=== PATIENT | male | born 1945 | race Caucasian/White ===

== ENCOUNTER → 2018-09-27 | Outpatient (CLI) | payer OTHER ==
[~2018-09-27] MED LIST: 0.9 % SODIUM CHLORIDE 10 ML VIAL ONE; ASPI-630 PO; ATOR40TA59 PO; CARB15DR72 OT; CHOL10003 PO; FAMO40TA4 PO; FURO20TA3 PO; GABA-586 PO; GABA-587 PO; GABA600T7 PO; INSU100C4 SQ; INSU100V13 SQ; IOHEXOL 300 MG/ML 50 ML VIAL. ONE; LIDO30CR TP; LIDOCAINE 1% PF 30 ML VIAL. ONE; LISI40TA PO; METF500T16 PO; METO50TA6 PO; PROP10DR9 OP; SEMA0.25 SQ; TIZA4TAB2 PO; TRAM50TA PO; methylPREDNISolone ACETATE 80 MG/ML VIAL. ONE
[2018-09-27 14:07] VITALS: BP 144/84
== END | disposition home or self-care (01) ==
LOC: SURG 11:31
PROVIDERS: ATTEND Anesthesiology Pain Medicine
DX: M47.26 Other spondylosis with radiculopathy, lumbar region (principal); I10 Essential (primary) hypertension; E11.9 Type 2 diabetes mellitus without complications; I25.10 Atherosclerotic heart disease of native coronary artery without angina pectoris; M19.012 Primary osteoarthritis, left shoulder; Z79.4 Long term (current) use of insulin; Z79.891 Long term (current) use of opiate analgesic; Z79.899 Other long term (current) drug therapy; Z95.5 Presence of coronary angioplasty implant and graft
CPT/HCPCS: 62323; J1040; J2001; Q9967

== ENCOUNTER → 2019-01-15 | Outpatient (CLI) | payer OTHER ==
[~2019-01-15] MED LIST changes: +WARF2.5T71 PO
[2019-01-15 12:22] VITALS: BP 158/70
== END ==
LOC: SURG 10:16
PROVIDERS: ATTEND Anesthesiology Pain Medicine
DX: M54.16 Radiculopathy, lumbar region (principal)
CPT/HCPCS: 36415; 62323; 85610; J1040; J2001; Q9967

== ENCOUNTER 2020-06-02 21:24 | Emergency (ER) | payer MEDICARE, OTHER ==
[~2020-06-02] VITALS: Ht 182.9 cm; Wt 132.9 kg
[~2020-06-02 21:24] MED LIST changes: -0.9 % SODIUM CHLORIDE 10 ML VIAL ONE; -IOHEXOL 300 MG/ML 50 ML VIAL. ONE; -LIDOCAINE 1% PF 30 ML VIAL. ONE; -LISI40TA PO; +LISI40TA6 PO; -methylPREDNISolone ACETATE 80 MG/ML VIAL. ONE
--- NOTE | 2020-06-02 21:46 | RAD ---
EXAM: CT HEAD WITHOUT CONTRAST. HISTORY: Code stroke. Left weakness. TECHNIQUE: Computed tomography of the head was performed without intravenous contrast. *One or more o f the following individualized dose reduction techniques were utilized for this examination: 1. Automated exposure control. 2. Adjustment of the mA and/or kV according to patient size. 3. Use of iterative reconstruction technique. COMPARISON: None. FINDINGS: A fluid density left subdural collection measures 7 mm in thickness. Hypoattenuation within the periventricular white matter indicates mild chronic microangiopathic change. Prominence of the l ateral ventricles and hemispheric sulci indicates mild atrophy. The blood pool is diffusely somewhat hyperdense. The visualized paranasal sinuses appear clear. There are changes of bilateral cataract surgery. The t emporal bones are unremarkable. The calvarium reveals no suspicious lesions. There are atheroscleroti c calcifications of the internal carotid and vertebral arteries. IMPRESSION: 1. A 7 mm left subdural collection may be a chronic fluid density subdural hematoma, versus asymmetri c prominence of the extra-axial space in the setting of atrophy. 2. Mild to moderate atrophy and chronic microangiopathic white matter change. 3. Hyperattenuation of the blood pool. Correlate for polycythemia or hemoconcentration. These findings were called to Dr. Valenzuela by Polo Carrillo on 06/02/2020 at 9:40 PM. FOR INTERNAL CODING PURPOSES RESULT CODE: (C) Electronically signed by: Janett Carrillo MD (06/02/2020 9:44 PM) [facility]
[2020-06-02 21:56] LABS: HEMATOCRIT 50.7 % (39.0-53.0); HEMOGLOBIN 16.9 g/dL (13.0-17.5); RED BLOOD COUNT 5.3 x10^6/uL (4.30-5.70); RED CELL DISTRIBUTION WIDTH 16.5 % (11.5-14.5); WHITE BLOOD COUNT 14.8 x10^3/uL (4.0-11.0)
[2020-06-02 22:06] LABS: CALCIUM 9.5 mg/dL (8.5-10.1); CREATININE 1.5 mg/dL (0.7-1.3); GFR 45.4; POTASSIUM 5.2 mmol/L (3.5-5.1)
[2020-06-02] MEDS ORDERED: dilTIAZem 25 MG/5 ML VIAL IVP ONE (22:15)
--- NOTE | 2020-06-02 22:37 | RAD ---
EXAM: CHEST ONE VIEW. HISTORY: Cerebrovascular accident. COMPARISON: None. FINDINGS: A frontal view of the chest is obtained. The projection is lordotic. There are no confluent infiltrates. There is no pneumothorax or pleural e ffusion. The heart is not enlarged. There are atherosclerotic calcifications of the aorta. IMPRESSION: 1. No confluent infiltrates. Electronically signed by: Janett Carrillo MD (06/02/2020 10:35 PM) [facility]
[2020-06-02] MEDS ORDERED: IV NORMAL SALINE 100ML 100 ML ONE (22:38)
[2020-06-02] MEDS ORDERED: IV NORMAL SALINE 1,000ML 1,000 ML IV ONE (22:45)
[2020-06-02] MEDS ORDERED: dilTIAZem VIAL 125 MG in IV NORMAL SALINE 100ML 100 ML IV PRN (22:45)
[2020-06-02 22:51] LABS: CLARITY,URINE HAZY; COLOR,URINE YELLOW
[2020-06-02 22:52] LABS: BACTERIA,URINE FEW /HPF (0-FEW); BILIRUBIN,URINE NEG (NEG); GLUCOSE,URINE >=1000 mg/dL (NEG); NITRITE,URINE NEG (NEG); RBC,URINE 0 /HPF (0-2); SQUAMOUS EPITHELIAL CELL,UR OCC /LPF; UROBILINOGEN,URINE 0.2 mg/dL (0.2 mg/dL); WBC,URINE 20-40 /HPF (0-4)
[2020-06-02 22:59] VITALS: BP 117/51
--- NOTE | 2020-06-02 23:47 | EKG ---
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
--- NOTE | 2020-06-02 23:51 | EKG ---
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
--- NOTE | 2020-06-02 23:54 | PHYS DOC ---
Past History Past Medical History: CAD, Diabetes, GERD, High Cholesterol, Hypertension, NH, Renal Disease Past Surgical History: Other Additional Past Surgical Histo: ARM SX, CARDIAC STENTS, KIDNEY REMOVED Alcohol Use: None General Adult EDM: Chief Complaint: NEURO SYMPTOMS/DEFICITS HPI: HPI: 75-year-old male presents as a code stroke. The patient was last known well at 7 PM. The patient went to stand up and was unable to stand up. He slid down his chair and onto the floor. Family was unable to pick him up. He was repeating himself over and over and then he stopped answering questions. He seemed to be staring off into space. They called an ambulance and they brought him to the emergency room. On arrival the patient had some garbled speech and was unable to fully answer questions. This did improve within the first 15 minutes. Patient does not remember the episode at home. [facility]. Review of Systems: Review of Systems: Constitutional: Denies fever or chills Eyes: Denies change in visual acuity HENT: Denies nasal congestion or sore throat Respiratory: Denies cough or shortness of breath Cardiovascular: Denies chest pain or edema GI: Denies abdominal pain, nausea, vomiting, bloody stools or diarrhea : Denies dysuria Musculoskeletal: Denies back pain or joint pain Integument: Denies rash Neurologic: Left-sided weakness, garbled speech Endocrine: Denies polyuria or polydipsia Lymphatic: Denies swollen glands Psychiatric: Denies depression or anxiety Current Medications: Current Meds: Current Medications Medications (Trade) Dose Ordered Sig/[facility] Start Time Stop Time Status Last Admin Dose Admin Diltiazem HCl (Cardizem Iv Push) 10 mg 1X ONCE 06/02/20 22:15 06/02/20 22:21 DC 06/02/20 22:18 10 MG Diltiazem HCl (Cardizem) 125 mg STK-MED ONCE 06/02/20 22:39 06/02/20 22:39 DC Diltiazem HCl 125 mg/Sodium Chloride 125 ml @ 5 mls/hr CONT PRN 06/02/20 22:45 06/02/20 22:42 5 MLS/HR Sodium Chloride 100 ml @ As Directed STK-MED ONCE 06/02/20 22:38 06/02/20 22:39 DC Allergies: Allergies: Allergies Coded Allergies Type Severity Reaction Last Updated Verified No Known Drug Allergies 09/27/18 No Physical Exam: PE: Constitutional: Well developed, well nourished, morbidly obese, moderate acute distress.. [] HENT: Normocephalic, atraumatic, bilateral external ears normal, oropharynx moist, no oral exudates, nose normal. [] Eyes: PERRLA, EOMI, conjunctiva normal, no discharge. [] Neck: Normal range of motion, no tenderness, supple, no stridor. [] Cardiovascular: Heart rate 155, irregular rhythm, no murmur [] Lungs & Thorax: Bilateral breath sounds with rhonchi anteriorly [] Abdomen: Bowel sounds normal, soft, no tenderness, no masses, no pulsatile masses. [] Skin: Warm, dry, no erythema, no rash. [] Back: No tenderness, no CVA tenderness. [] Extremities: No tenderness, no cyanosis, no clubbing, no edema. [] Neurologic: See NIH stroke scale [] Psychologic: Affect normal, judgement normal, mood normal. [] Current Patient Data: Labs: Laboratory Tests Test 06/02/20 21:40 06/02/20 21:44 06/02/20 21:50 White Blood Count 14.8 x10^3/uL (4.0-11.0) H Red Blood Count 5.30 x10^6/uL (4.30-5.70) Hemoglobin 16.9 g/dL (13.0-17.5) Hematocrit 50.7 % (39.0-53.0) Mean Corpuscular Volume 96 fL (79-100) Mean Corpuscular Hemoglobin 32 pg (25-35) Mean Corpuscular Hemoglobin Concent 33 g/dL (31-37) Red Cell Distribution Width 16.5 % (11.5-14.5) H Platelet Count 234 x10^3/uL (140-400) Prothrombin Time 13.8 SEC (9.4-11.4) H Prothrombin Time INR 1.4 (0.9-1.1) H Activated Partial Thromboplast Time 32 SEC (23-33) Sodium Level 136 mmol/L (136-145) Potassium Level 5.2 mmol/L (3.5-5.1) H Chloride Level 100 mmol/L (98-107) Carbon Dioxide Level 23 mmol/L (21-32) Anion Gap 13 (6-14) Blood Urea Nitrogen 23 mg/dL (8-26) Creatinine 1.5 mg/dL (0.7-1.3) H Estimated GFR (Cockcroft-Gault) 45.4 Glucose Level 272 mg/dL (70-99) H Calcium Level 9.5 mg/dL (8.5-10.1) Magnesium Level 1.8 mg/dL (1.8-2.4) Troponin I Quantitative 0.027 ng/mL (0-0.055) FT-Xxb-Q-Type Natriuretic Peptide 1132 pg/mL (0-449) H Glucose (Fingerstick) 290 mg/dL (70-99) H Urine Collection Type Unknown Urine Color Yellow Urine Clarity Hazy Urine pH 5.5 Urine Specific Melvin 1.010 Urine Protein Neg (NEG-TRACE) Urine Glucose (UA) >=1000 mg/dL (NEG) Urine Ketones (Stick) Neg mg/dL (NEG) Urine Blood Trace (NEG) Urine Nitrite Neg (NEG) Urine Bilirubin Neg (NEG) Urine Urobilinogen Dipstick 0.2 mg/dL (0.2 mg/dL) Urine Leukocyte Esterase Neg (NEG) Urine RBC 0 /HPF (0-2) Urine WBC 20-40 /HPF (0-4) Urine Squamous Epithelial Cells Occ /LPF Urine Bacteria Few /HPF (0-FEW) Vital Signs: Vital Signs Date Time Temp Pulse Resp B/P (MAP) Pulse Ox O2 Delivery O2 Flow Rate FiO2 06/02/20 22:59 148 24 117/51 (73) 92 Nasal Cannula 4.0 06/02/20 21:53 99.2 EKG: EKG: First EKG: Sinus rhythm, rate 88, left bundle branch block, no ST elevations or depressions. Second E EKG: Irregular rhythm, rate 152, wide QRS, no discernible P waves. Third EKG: Sinus rhythm, rate 76, leftward axis, left bundle branch block, no ST elevations or depressions. [] Radiology/Procedures: Radiology/Procedures: [] Heart Score: C/O Chest Pain: No Risk Factors: Risk Factors: DM, Current or recent (<one month) smoker, HTN, HLP, family history of CAD, obesity. Risk Scores: Score 0 - 3: 2.5% MACE over next 6 weeks - Discharge Home Score 4 - 6: 20.3% MACE over next 6 weeks - Admit for Clinical Observation Score 7 - 10: 72.7% MACE over next 6 weeks - Early Invasive Strategies Course & Med Decision Making: Course & Med Decision Making Pertinent Labs and Imaging studies reviewed. (See chart for details) On arrival the patient did seem very confused and seemed to have some left-sided weakness. He had bilateral lower extremity weakness but he was moving all of his extremities spontaneously. During my initial interview, the patient seemed to be improving and he started answering some questions. His speech became more intelligible. His head CT shows a possible old subdural hematoma. See official read for more details. I spoke with neurosurgery at [facility] they did not feel the CT findings were involved with the current symptoms. The patient has paroxysmal atrial fibrillation. He is on Xarelto daily. He is not a candidate for TPA. As the patient started to improve, his heart rate increased in the 150s 160s. It initially looked like it could be ventricular fibrillation or V. tach wide-complex irregular rhythm. His initial EKG was sinus and showed a left bundle branch block. Further review of the patient's history shows he has a known left bundle branch block with his A. fib. I gave the patient 10 mg of Cardizem bolus and his heart rate improved slightly. I then placed him on a Cardizem drip. We were able to improve his heart rate. Patient's blood pressure became low just prior to Cardizem so gave him a bolus of 1 L normal saline. The patient was much more able to answer my questions and seemed more aware of his surroundings at this time. His states that he was acting much more normal also. I spoke with the hospitalist, Dr. Brand and he has accepted the patient for transfer and admission to [facility]. The patient will go by ambulance. 47 minutes of critical care time was spent on this patient exclusive of other billable procedures. [] Dragon Disclaimer: Dragon Disclaimer: This electronic medical record was generated, in whole or in part, using a voice recognition dictation system. NIH Stroke Scale: NIH Stroke Scale Response (Comments) Value Level of Consciousness: 1 Not alert/arousable 1 LOC Questions: 1 Answers one correctly 1 LOC Commands: 1 Performs one task 1 Best Gaze: 0 Normal 0 Visual: 0 No visual loss 0 Facial Palsy: 0 Normal, symmetrical 0 Motor - Left Arm 2 Some effort 2 Motor - Right Arm 0 No drift 0 Motor - Left Leg 2 Some effort 2 Motor: Right Leg 2 Some effort 2 Limb Ataxia: 0 Absent 0 Sensory: 0 No loss 0 Best Language: 1 Mild to mod aphasia 1 Extinction and Inattention: 0 Normal 0 Total 10 Departure Departure: Impression: Primary Impression: TIA (transient ischemic attack) Additional Impressions: Atrial fibrillation Subdural hematoma, chronic Disposition: 02 SHORT TERM HOSPITAL Condition: GUARDED Referrals: PCP,NO (PCP) RENNY BEATTY DO Jun 02, 2020 23:54
--- NOTE | 2020-06-03 00:04 | EKG ---
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
== END 2020-06-03 00:05 | disposition short-term general hospital (02) ==
LOC: ER 21:24
DX: S06.5X9A Traumatic subdural hemorrhage with loss of consciousness of unspecified duration, initial encounter (principal); G45.9 Transient cerebral ischemic attack, unspecified; I48.91 Unspecified atrial fibrillation; I25.10 Atherosclerotic heart disease of native coronary artery without angina pectoris; E11.9 Type 2 diabetes mellitus without complications; K21.9 Gastro-esophageal reflux disease without esophagitis; E78.00 Pure hypercholesterolemia, unspecified; I10 Essential (primary) hypertension; I25.2 Old myocardial infarction; Z79.01 Long term (current) use of anticoagulants; X58.XXXA Exposure to other specified factors, initial encounter; Y93.89 Activity, other specified; Y92.89 Other specified places as the place of occurrence of the external cause; Y99.8 Other external cause status
CPT/HCPCS: 36415; 70450; 71045; 80048; 81001; 82947; 83735; 83880; 84484; 85027; 85610; 85730; 87086; 93005; 96365; 96376; 99291; J3490; J7030